=== PATIENT | female | born 1960 | race Two or more races ===

== ENCOUNTER 2023-10-08 21:00 | Inpatient (IN) | payer MEDICAID, OTHER ==
[~2023-10-08] VITALS: Ht 160 cm; Wt 67.5 kg
[2023-10-08 21:53] LABS: Basophils # (auto) 0.1 10 ^3/uL (0-0.2); Basophils % (auto) 2.5 % (0.0-2.0); Eosinophils # (auto) 0.2 10 ^3/uL (0-0.8); Eosinophils % (auto) 3.7 % (0.0-7.0); Hematocrit 39.4 % (36.0-46.0); Lymphocytes # (auto) 1.6 10 ^3/uL (0.4-5.4); Mean Corpuscular Hemoglobin 33.4 pg (28.0-32.0); Mean Corpuscular Hgb Conc. 35.5 g/dL (32.0-36.0); Mean Corpuscular Volume 94.2 fL (80.0-100.0); Monocytes # (auto) 0.5 10 ^3/uL (0-1.3); Monocytes % (auto) 9.3 % (0.0-12.0); Neutrophils # (auto) 2.8 10 ^3/uL (1.6-8.6); Neutrophils % (auto) 53.5 % (37.0-80.0); Platelet Count (auto) 267 10^3/uL (140-450); Red Blood Cells 4.18 10^6/uL (4.0-5.20); Red Cell Distribution Width 13.3 % (11.8-14.3); White Blood Cell 5.2 10^3/uL (4.4-10.8)
[2023-10-08 22:00] LABS: Alanine Aminotransferase 46 U/L (7-40); Albumin 4.4 g/dL (3.2-4.8); Alkaline Phosphatase 133 U/L (46-116); Anion Gap 10 (5-15); Aspartate Aminotransferase 104 U/L (13-40); Bilirubin, Total 0.4 mg/dL (0.2-1.0); Calcium 9.6 mg/dL (8.7-10.4); Carbon Dioxide 23 mmol/L (20-30); Chloride 97 mmol/L (98-107); Glucose 97 mg/dL (74-106); Potassium 3.4 mmol/L (3.5-5.1); Sodium 130 mmol/L (136-145); Total Protein 7.4 g/dL (5.7-8.2)
[2023-10-08 22:02] LABS: BUN/Creatinine Ratio 7.9 (10.0-20.0); Blood Urea Nitrogen < 5 mg/dL (9-23)
[2023-10-08 22:21] VITALS: PULSE 73; RESP 8; O2SAT 95
[2023-10-08] MEDS: ENOXAPARIN SOD 60 MG/0.6 ML SYRINGE SC ONE (23:27)
[2023-10-08] MEDS: ASPirin 325 MG TAB PO ONE (23:27)
[2023-10-09] MEDS: MORPHINE SULFATE 4 MG/ML SYR/VIAL IV ONE (01:02)
[2023-10-09] MEDS ORDERED: hydrALAZINE HCL 20 MG/ML VL IV PRN (01:45)
[2023-10-09] MEDS: ONDANSETRON HCL 4 MG/2 ML VIAL IV ONE (01:58)
[2023-10-09] MEDS: POTASSIUM CHL 20 Meq TABLET PO ONE ×2 (02:27→10:23)
[2023-10-09] MEDS: ATORVASTATIN 20 MG TAB PO ONE (02:27)
[2023-10-09 02:41] LABS: Basophils # (auto) 0 10 ^3/uL (0-0.2); Basophils % (auto) 0.7 % (0.0-2.0); Eosinophils # (auto) 0.2 10 ^3/uL (0-0.8); Eosinophils % (auto) 3.1 % (0.0-7.0); Hematocrit 39.6 % (36.0-46.0); Hemoglobin 13.5 g/dL (12.2-16.2); Lymphocytes # (auto) 1.5 10 ^3/uL (0.4-5.4); Mean Corpuscular Hemoglobin 32.3 pg (28.0-32.0); Mean Corpuscular Hgb Conc. 34.1 g/dL (32.0-36.0); Mean Corpuscular Volume 94.7 fL (80.0-100.0); Monocytes # (auto) 0.6 10 ^3/uL (0-1.3); Monocytes % (auto) 11.6 % (0.0-12.0); Neutrophils # (auto) 2.8 10 ^3/uL (1.6-8.6); Neutrophils % (auto) 54.6 % (37.0-80.0); Platelet Count (auto) 268 10^3/uL (140-450); Red Blood Cells 4.18 10^6/uL (4.0-5.20); Red Cell Distribution Width 13.1 % (11.8-14.3); White Blood Cell 5.1 10^3/uL (4.4-10.8)
[2023-10-09 02:50] LABS: Urine Bacteria None Seen /hpf (None Seen)
[2023-10-09 02:51] LABS: INR 1.07 (0.9-1.15); Partial Thromboplastin Time 32.7 SEC (24.5-34.5); Prothrombin Time 11.3 sec (9.3-11.8)
[2023-10-09 02:55] LABS: Triglycerides 84 mg/dL (< 150)
[2023-10-09 02:56] LABS: LDL Cholesterol 51 mg/dL (< 100)
[2023-10-09 02:57] LABS: Cholesterol 224 mg/dL (< 200); HDL Cholesterol 147 mg/dL (40-59)
[2023-10-09 03:11] LABS: Urine Blood Negative /uL (Negative); Urine Clarity Clear (Clear); Urine Color Colorless (Yellow); Urine Protein, UAD Negative (Negative); Urine Specific Gravity 1.004 (1.001-1.035); Urine Urobilinogen Normal (Negative); Urine WBC 2 /hpf (0 - 5); Urine pH 5.5 (5.0-9.0)
[2023-10-09] MEDS: HYDROcodone-ACET 5/325MG TAB PO ONE (03:26)
[2023-10-09 07:40] VITALS: PULSE 71; RESP 15; O2SAT 97
[2023-10-09] MEDS: NITROGLYCERIN 0.4 MG SL TAB SL PRN (08:10)
[2023-10-09] MEDS: MORPHINE SULFATE INJ 2 MG/ml SYRG IV PRN (08:11)
[2023-10-09] MEDS: ONDANSETRON HCL 4 MG/2 ML VIAL IV PRN (08:21)
[2023-10-09] MEDS: SODIUM CHLORIDE 0.9% 1,000 ML IV ONE (09:00)
[2023-10-09] MEDS: NOREPINEPHRINE 8 MG/250ML KIT 0 ML IV ONE (09:06)
[2023-10-09] MEDS ORDERED: METOCLOPRAMIDE HCL 5MG/ml INJ 2ml VIAL IV PRN (09:15)
[2023-10-09] MEDS: NOREPINEPHRINE 8 MG/250ML KIT 250 ML IV SCH (09:15)
[2023-10-09] MEDS: ASPirin 81 mg TAB PO SCH (10:23)
[2023-10-09] MEDS: HEPARIN DRIP/D5W 100UNITS/ML 250 ML IV SCH ×2 (10:25→18:25)
[2023-10-09 17:20] LABS: INR 1.07 (0.9-1.15); Partial Thromboplastin Time 32.8 SEC (24.5-34.5); Prothrombin Time 11.3 sec (9.3-11.8)
[2023-10-09] MEDS: HEPARIN SODIUM (PORCINE) 5000 UNITS/ML 1ML VIAL IV ONE (18:25)
[2023-10-09 19:30] VITALS: PULSE 77; RESP 15; O2SAT 97
[2023-10-09 20:00] VITALS: PULSE 94
[2023-10-09] MEDS: LORazepam 2MG/ML-1ML VIAL IV PRN (20:09)
[2023-10-09] MEDS: METOPROLOL TARTRATE 25 MG TAB PO SCH (21:33)
[2023-10-09] MEDS: ATORVASTATIN 20 MG TAB PO SCH (21:33)
[2023-10-09] MEDS ORDERED: ATORVASTATIN 20 MG TAB PO SCH (22:00)
[2023-10-10] VITALS (15 sets, daily range): BP systolic 99–141; BP diastolic 61–88; PULSE 64–94; RESP 11–19; TEMP 97.5–98.5; O2SAT 92–100
[2023-10-10] MEDS ORDERED: AMLO1TAB22 PO (01:13)
[2023-10-10] MEDS ORDERED: SERT-206 PO (01:13)
[2023-10-10] MEDS ORDERED: ROPI0.5T26 PO (01:13)
[2023-10-10] MEDS ORDERED: LISI20TA56 PO (01:13)
[2023-10-10] MEDS ORDERED: TRAZ-228 PO (01:13)
[2023-10-10] MEDS ORDERED: HYDR-4924 PO (01:13)
[2023-10-10] MEDS ORDERED: ROPI5TAB20 PO (01:13)
[2023-10-10 01:22] LABS: INR 1.09 (0.9-1.15); Prothrombin Time 11.5 sec (9.3-11.8)
[2023-10-10 01:26] LABS: Partial Thromboplastin Time 87.7 SEC (24.5-34.5)
[2023-10-10] MEDS ORDERED: HEPARIN DRIP/D5W 100UNITS/ML 250 ML IV SCH (01:45)
[2023-10-10] MEDS: HEPARIN DRIP/D5W 100UNITS/ML 250 ML IV SCH ×2 (01:47→08:44)
[2023-10-10] MEDS: IODIXANOL 320MG/ML 100ML BTL IV ONE (07:36)
[2023-10-10] MEDS: HEPARIN IN NS 1000Units/500mL 1,500 ML ONE ×2 (07:36→08:50)
[2023-10-10 07:48] LABS: Basophils # (auto) 0.1 10 ^3/uL (0-0.2); Basophils % (auto) 1.5 % (0.0-2.0); Eosinophils # (auto) 0.1 10 ^3/uL (0-0.8); Eosinophils % (auto) 3.3 % (0.0-7.0); Hematocrit 38.9 % (36.0-46.0); Hemoglobin 13.4 g/dL (12.2-16.2); Lymphocytes # (auto) 1.2 10 ^3/uL (0.4-5.4); Lymphocytes % (auto) 29.3 % (10.0-50.0); Mean Corpuscular Hemoglobin 33.1 pg (28.0-32.0); Mean Corpuscular Hgb Conc. 34.3 g/dL (32.0-36.0); Mean Corpuscular Volume 96.3 fL (80.0-100.0); Monocytes # (auto) 0.5 10 ^3/uL (0-1.3); Monocytes % (auto) 12.1 % (0.0-12.0); Neutrophils # (auto) 2.2 10 ^3/uL (1.6-8.6); Neutrophils % (auto) 53.8 % (37.0-80.0); Nucleated Red Blood Cells % 0.1 %; Platelet Count (auto) 224 10^3/uL (140-450); Red Blood Cells 4.04 10^6/uL (4.0-5.20); Red Cell Distribution Width 13.4 % (11.8-14.3)
[2023-10-10 07:55] LABS: Alanine Aminotransferase 55 U/L (7-40); Alkaline Phosphatase 178 U/L (46-116); Anion Gap 7 (5-15); Calcium 9.4 mg/dL (8.7-10.4); Carbon Dioxide 24 mmol/L (20-30); Chloride 104 mmol/L (98-107); Glucose 87 mg/dL (74-106); Potassium 3.5 mmol/L (3.5-5.1)
[2023-10-10 07:57] LABS: Albumin 3.9 g/dL (3.2-4.8); Aspartate Aminotransferase 133 U/L (13-40)
[2023-10-10 07:58] LABS: Total Protein 6.5 g/dL (5.7-8.2)
[2023-10-10 08:01] LABS: BUN/Creatinine Ratio 8.3 (10.0-20.0); Blood Urea Nitrogen < 5 mg/dL (9-23); Sodium 135 mmol/L (136-145)
[2023-10-10 08:15] LABS: INR 1.06 (0.9-1.15); Partial Thromboplastin Time 40.5 SEC (24.5-34.5); Prothrombin Time 11.2 sec (9.3-11.8)
[2023-10-10] MEDS: LIDOCAINE 2%HCL (LOCAL ANESTH.) INJ 20ML MDV ONE (08:50)
[2023-10-10] MEDS: fentaNYL CITRATE 100 MCG/2 ML VL ONE (08:59)
[2023-10-10] MEDS: MIDAZOLAM HCL 2MG/2ML 2ml VIAL (1mg/ml) ONE (09:00)
[2023-10-10] MEDS: IOHEXOL 350 MG/ML 100ML IJ ONE (09:00)
[2023-10-10] MEDS: HEPARIN SODIUM (PORCINE) 5000 UNITS/ML 1ML VIAL ONE (09:32)
[2023-10-10] MEDS: VERAPAMIL 2.5MG/ML INJ 2ML VIAL IV ONE (09:33)
[2023-10-10] MEDS: ANGIOMAX 250 MG VIAL IV ONE (09:33)
[2023-10-10] MEDS: SERTRALINE HCL 50 MG TAB PO ONE (12:27)
[2023-10-10] MEDS: COLCHICINE 0.6 MG CAP PO ONE (12:27)
[2023-10-10] MEDS: ASPirin 81 mg TAB PO SCH (12:27)
[2023-10-10] MEDS: traZODone HCL 50 MG TAB PO SCH (22:15)
[2023-10-10] MEDS: COLCHICINE 0.6 MG CAP PO SCH (22:15)
[2023-10-10] MEDS: ROPINIROLE 0.5 MG PO SCH (22:19)
[2023-10-11 01:00] VITALS: BP 124/83; PULSE 68; RESP 16; TEMP 98; O2SAT 99
[2023-10-11 05:00] VITALS: BP 110/64; PULSE 72; RESP 18; TEMP 98; O2SAT 97
[2023-10-11 08:00] VITALS: PULSE 66; PULSE 69; RESP 17; O2SAT 99
[2023-10-11 08:49] LABS: Hepatitis B Surface Antigen Negative (Negative)
[2023-10-11 09:00] VITALS: BP 130/76; PULSE 66; RESP 17; TEMP 98.5; O2SAT 99
[2023-10-11 09:10] LABS: Hepatitis A Ab IgM Negative; Hepatitis B Core IgM Negative
[2023-10-11 09:11] LABS: Hepatitis C Antibody Negative (Negative)
[2023-10-11] MEDS: SERTRALINE HCL 50 MG TAB PO SCH (09:31)
[2023-10-11] MEDS ORDERED: COLC1CAP PO (10:52)
[2023-10-11] MEDS ORDERED: ASPI-628 PO (10:52)
[2023-10-11] MEDS ORDERED: METO25TA5 PO (10:52)
[2023-10-11] MEDS ORDERED: ATOR-507 PO (10:52)
[2023-10-11] MEDS ORDERED: LORA-1121 PO (10:53)
[2023-10-11 12:49] VITALS: BP 116/77; PULSE 64; RESP 17; TEMP 98.1; O2SAT 97
[2023-10-11 13:01] VITALS: BP 130/76; PULSE 66; TEMP 36.7
== END 2023-10-11 16:18 | disposition home or self-care (01) | DRG 190 ==
LOC: ER 21:00 → TELE 10-09 01:47 → TELE-WESTW 10-09 23:47
PROVIDERS: ADMIT Nurse Practitioner; ATTEND Family Medicine
PROC: B211YZZ Fluoroscopy of Multiple Coronary Arteries using Other Contrast (ICD-10-PCS; principal; 2023-10-10)
PROC: 4A023N7 Measurement of Cardiac Sampling and Pressure, Left Heart, Percutaneous Approach (ICD-10-PCS; 2023-10-10)
PROC: B215YZZ Fluoroscopy of Left Heart using Other Contrast (ICD-10-PCS; 2023-10-10)
DX: I21.4 Non-ST elevation (NSTEMI) myocardial infarction (principal); E87.1 Hypo-osmolality and hyponatremia; I31.9 Disease of pericardium, unspecified; E78.00 Pure hypercholesterolemia, unspecified; I10 Essential (primary) hypertension; R74.01 Elevation of levels of liver transaminase levels; F32.A Depression, unspecified; F10.10 Alcohol abuse, uncomplicated; K21.9 Gastro-esophageal reflux disease without esophagitis; Z88.2 Allergy status to sulfonamides; Z98.84 Bariatric surgery status; Z79.899 Other long term (current) drug therapy; Z90.49 Acquired absence of other specified parts of digestive tract; Z71.41 Alcohol abuse counseling and surveillance of alcoholic
CPT/HCPCS: 36415; 71045; 80053; 80061; 80074; 81001; 82962; 83880; 84484; 85025; 85610; 85730; 86850; 86900; 86901; 93005; 93306; 93458; 96372; 96374; 99152; G0378; J2250; J2405; Q9967

== ENCOUNTER 2024-07-30 10:20 | Emergency (ER) | payer MEDICAID ==
[~2024-07-30] VITALS: Ht 160 cm; Wt 59.0 kg
[~2024-07-30 10:20] MED LIST: AMLO1TAB22 PO; ASPI-628 PO; ATOR-507 PO; COLC1CAP PO; HYDR-4924 PO; LISI20TA56 PO; LORA-1121 PO; METO25TA5 PO; ROPI0.5T26 PO; ROPI5TAB20 PO; SERT-206 PO; TRAZ-228 PO
--- NOTE | 2024-07-30 10:36 | ED.PDOC ---
Psychiatric HPI Comments 63 y/o F, with PMHx of alcohol abuse, HTN, and SC presents to the ED for CC of withdrawals. Patient states, that she drinks ETOH xeveryday and endorses, her last drink to be 2400 last night (07/29/24). Patient endorses, experiencing symptoms of tremors and chest discomfort. Patient denies nausea, vomiting, auditory hallucinations, or visual hallucinations. No other symptoms or modifying factors present at this time. Time Seen by MD: 10:32 Reviewed Notes: Nurses Notes, Medications, Allergies Information Source: Patient Mode of Arrival: Ambulatory Severity: Able to Care for Self Severity of Pain: None Severity of Mental Status: Moderate Severity of Symptoms: Moderate Timing: Hours Duration: Since onset Prehospital treatment: None Presents with: Alcohol Intoxication Ingestion: ETOH Circumstance: Withdrawal Symptoms Current substance abuse: ETOH Stressors: None History of: Alcoholism Quality: None Location: None Location of pain or injury: None Associated signs and symptoms: None Past Medical History PAST MEDICAL HISTORY: HTN Surgical History: Appendectomy, Cholecystectomy Surgical History (Other): GASTRIC BYPASS, L-ARM, R-HIP 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 SERVICES OFFICER History: Denies all ANIMAL SERVICES OFFICER Hx Family History Family History: Unknown Social History Smoker: Non-Smoker Alcohol: Heavy Drugs: Marijuana Lives In: Home Constitutional: reports: weakness; denies: chills, diaphoresis, fatigue, fever, malaise, sweats, others EENTM: denies: blurred vision, double vision, ear bleeding, ear discharge, ear drainage, ear pain, ear ringing, eye pain, eye redness, hearing loss, mouth pain, mouth swelling, nasal discharge, nose bleeding, nose congestion, nose pain, photophobia, tearing, throat pain, throat swelling, voice changes, others Respiratory: denies: cough, hemoptysis, orthopnea, SOB at rest, shortness of breath, SOB with excertion, stridor, wheezing, others Cardiovascular: reports: chest pain; denies: dizzy spells, diaphoresis, Dyspnea on exertion, edema, irregular heart beat, left arm pain, lightheadedness, palpitations, PND, syncope, others Gastrointestinal: denies: abdomen distended, abdominal pain, blood streaked bowels, constipated, diarrhea, dysphagia, difficulty swallowing, hematemesis, melena, nausea, poor appetite, poor fluid intake, rectal bleeding, rectal pain, vomiting, others Genitourinary: denies: abnormal vagina bleeding, burning, dyspareunia, dysuria, flank pain, frequency, hematuria, incontinence, pain, , vagina discharge, urgency, others Neurological: reports: tremors; denies: dizziness, fainting, headache, left sided numbness, left sided weakness, numbness, paresthesia, pre-existing defi cit, right sided numbness, right sided weakness, seizure, speech problems, tingling, weakness, others Musculoskeletal: denies: back pain, gout, joint pain, joint swelling, muscle pain, muscle stiffness, neck pain, others Integumetry: denies: bruises, change in color, change in hair/nails, dryness, laceration, lesions, lumps, rash, wounds, others Allergic/Immunocompromised: denies: Difficulty Healing, Frequent Infections, Hives, Itching, others Hematologic/Lymphatic: denies: anemia, blood clots, easy bleeding, easy bruising, swollen glands, others Endocrine: denies: excessive hunger, excessive sweating, excessive thirst, excessive urination, flushing, intolerance to cold, intolerance to heat, unexplained weight gain, unexplained weight loss, others Psychiatric: denies: anxiety, bipolar disorder, depression, hopeless, panic disorder, schizophrenia, sleepless, suicidal, others All Other Systems: Reviewed and Negative Physical Exam General Appearance: Moderate Distress, Other (Tremors) HEENT: Normal ENT Inspection, Pharynx Normal, TMs Normal Neck: Full Range of Motion, Non-Tender, Normal, Normal Inspection Respiratory: Chest Non-Tender, Lungs Clear, No Accessory Muscle Use, No Respiratory Distress, Normal Breath Sounds Cardiovascular: No Edema, No JVD, No Murmur, No Gallop, Normal Peripheral Pulses, Regular Rate/Rhythm Breast Exam: Deferred Gastrointestinal: No Organomegaly, Non Tender, No Pulsatile Mass, Normal Bowel Sounds, Soft Genitalia: Deferred Pelvic: Deferred Rectal: Deferred Extremities: No calf tenderness, Normal capillary refill, Normal inspection, Normal range of motion, Non-tender, No pedal edema Musculoskeletal : Apperance: Normal Neurologic: Alert, licensed psychiatric technician II-XII nml as Tested, Motor Weakness, Normal Affect, Normal Mood, No Sensory Deficits Cerebellar Function: Tremor Reflexes: Normal Skin: Dry, Normal Color, Warm Lymphatic: No Adenopathy EKG EKG : Pulse Rate (adult): 85 [place]: Normal Cardiac Rhythm: NSR Block: None Hypertrophy: None ST: Normal Was a procedure done? Was a procedure done?: No Psych Differential Dx Intoxication Differential Dx: Alcohol Withdraw Syndrome X-Ray, Labs, Meds, VS Vital Signs Date Time Temp Pulse Resp B/P (MAP) Pulse Ox O2 Delivery O2 Flow Rate FiO2 07/30/24 10:57 85 07/30/24 10:53 85 07/30/24 10:49 98.0 107 20 122/66 (84) 98 98.0 Lab Test 07/30/24 10:40 Range/Units White Blood Count 4.8 4.4-10.8 10^3/uL Red Blood Count 4.16 4.0-5.20 10^6/uL Hemoglobin 12.7 12.2-16.2 g/dL Hematocrit 37.4 36.0-46.0 % Mean Corpuscular Volume 89.8 80.0-100.0 fL Mean Corpuscular Hemoglobin 30.6 28.0-32.0 pg Mean Corpuscular Hemoglobin Concent 34.1 32.0-36.0 g/dL Red Cell Distribution Width 14.0 11.8-14.3 % Platelet Count 261 140-450 10^3/uL Mean Platelet Volume 6.5 L 6.9-10.8 fL Neutrophils (%) (Auto) 69.5 37.0-80.0 % Lymphocytes (%) (Auto) 17.6 10.0-50.0 % Monocytes (%) (Auto) 9.4 0.0-12.0 % Eosinophils (%) (Auto) 2.4 0.0-7.0 % Basophils (%) (Auto) 1.1 0.0-2.0 % Neutrophils # (Auto) 3.3 1.6-8.6 10 ^3/uL Lymphocytes # (Auto) 0.8 0.4-5.4 10 ^3/uL Monocytes # (Auto) 0.5 0-1.3 10 ^3/uL Eosinophils # (Auto) 0.1 0-0.8 10 ^3/uL Basophils # (Auto) 0.1 0-0.2 10 ^3/uL Nucleated Red Blood Cells 0.0 % Sodium Level 132 L 136-145 mmol/L Potassium Level 3.9 3.5-5.1 mmol/L Chloride Level 97 L 98-107 mmol/L Carbon Dioxide Level 25 20-31 mmol/L Anion Gap 10 5-15 Blood Urea Nitrogen < 5 L 9-23 mg/dL Creatinine 0.77 0.550-1.02 mg/dL Glomerular Filtration Rate Calc 87 >90 mL/min BUN/Creatinine Ratio 6.5 L 10.0-20.0 Serum Glucose 112 H 74-106 mg/dL Calcium Level 10.2 8.7-10.4 mg/dL Troponin I High Sensitivity < 3 L </=34 ng/L Plasma/Serum Blood Alcohol < 3.0 <10 mg/dL IV Hep-Lock was established The patient was given a 1 L bolus of normal saline The patient was given Ativan 1 mg IV push At this time, the patient will be admitted to the hospitalist The patient's diagnosis is alcohol withdrawal as well as acute chest pain. The patient's 1st troponin level came back as negative The CBC and chemistry panel is within normal limits The patient is being given aspirin 162 mg by mouth The patient is still having some persistent chest pain that we are not sure if this chest pain is secondary to the alcohol withdrawal or something cardiac We will be admitting the patient for further observation and treatment Images Reviewed?: Images reviewed and evaluated by me Time of 1ST Reevaluation: 11:02 Reevaluation 1ST: Unchanged Patient Education/Counseling: Diagnosis, Treatment, Prognosis Family Education/Counseling: No Family Present Departure 1 Departure Time of Disposition: 11:44 Impression: Primary Impression: Acute chest pain Additional Impression: Alcohol withdrawal syndrome Qualified Codes: F10.930 - Alcohol use, unspecified with withdrawal, uncomplicated Disposition: 09 ADMITTED INPATIENT Admit to: Tele Condition: Fair Critical Care Note Critical Care Time?: Yes (45 min-critical care time only) Stability Stability form required: Yes Unstable for transfer: Telemetry monitoring (Telemetry monitoring required), ED Physician Assesment (Clinical assesment) Heart Score Heart Score: Heart Score Response (Comments) Value History Moderate Suspicious 1 EKG Normal 0 Age 45-64 1 Risk Factors 1 or 2 risk factors 1 Troponin Normal limit 0 Total 3 I personally scribed for ALONSO CASTELLANO MD ([email or web address]) on 07/30/24 at 10:36. Electronically submitted by Kaylynn Rowley ([email or web address]). I personally scribed for ALONSO CASTELLANO MD ([email or web address]) on 07/30/24 at 10:57. Electronically submitted by Kaylynn Rowley ([email or web address]). ALONSO CASTELLANO MD Jul 30, 2024 10:36
[2024-07-30 10:56] LABS: Basophils # (auto) 0.1 10 ^3/uL (0-0.2); Basophils % (auto) 1.1 % (0.0-2.0); Eosinophils # (auto) 0.1 10 ^3/uL (0-0.8); Eosinophils % (auto) 2.4 % (0.0-7.0); Hematocrit 37.4 % (36.0-46.0); Hemoglobin 12.7 g/dL (12.2-16.2); Lymphocytes # (auto) 0.8 10 ^3/uL (0.4-5.4); Lymphocytes % (auto) 17.6 % (10.0-50.0); Mean Corpuscular Hemoglobin 30.6 pg (28.0-32.0); Mean Corpuscular Hgb Conc. 34.1 g/dL (32.0-36.0); Mean Corpuscular Volume 89.8 fL (80.0-100.0); Monocytes # (auto) 0.5 10 ^3/uL (0-1.3); Monocytes % (auto) 9.4 % (0.0-12.0); Neutrophils # (auto) 3.3 10 ^3/uL (1.6-8.6); Neutrophils % (auto) 69.5 % (37.0-80.0); Platelet Count (auto) 261 10^3/uL (140-450); Red Blood Cells 4.16 10^6/uL (4.0-5.20); White Blood Cell 4.8 10^3/uL (4.4-10.8)
[2024-07-30 11:01] LABS: Potassium 3.9 mmol/L (3.5-5.1)
[2024-07-30 11:02] LABS: Anion Gap 10 (5-15); Calcium 10.2 mg/dL (8.7-10.4); Carbon Dioxide 25 mmol/L (20-31)
[2024-07-30 11:05] LABS: Chloride 97 mmol/L (98-107); Sodium 132 mmol/L (136-145)
[2024-07-30 11:07] LABS: BUN/Creatinine Ratio 6.5 (10.0-20.0); Blood Urea Nitrogen < 5 mg/dL (9-23); Glucose 112 mg/dL (74-106)
[2024-07-30 11:08] LABS: Blood Alcohol < 3.0 mg/dL (<10)
[2024-07-30] MEDS: SODIUM CHLORIDE 0.9% 1,000 ML IV ONE (12:16)
[2024-07-30] MEDS: LORazepam 2MG/ML-1ML VIAL IV ONE (12:18)
--- NOTE | 2024-07-30 12:21 | DVH ---
CHEST RADIOGRAPH Indication: CP Technique: Frontal and lateral view of the chest was obtained Comparison: None FINDINGS: Lines and Tubes: None Lungs: Clear Pleura: No effusion. No pneumothorax. Cardiomediastinal contours: Unremarkable Bones: Unremarkable IMPRESSION: No evidence of acute disease.
[2024-07-30] MEDS: ASPirin 81 mg TAB PO ONE (13:22)
[2024-07-30] MEDS: ONDANSETRON HCL 4 MG/2 ML VIAL IV ONE (16:09)
[2024-07-30] MEDS: MORPHINE SULFATE 4 MG/ML SYR/VIAL IV ONE (16:09)
[2024-07-30 16:36] VITALS: BP 135/80; PULSE 74; RESP 14; TEMP 98.6; O2SAT 97
--- NOTE | 2024-07-31 14:17 | ECG ---
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
== END 2024-07-30 17:00 | disposition short-term general hospital (02) ==
LOC: ER 10:20
DX: R07.89 Other chest pain (principal); F10.139 Alcohol abuse with withdrawal, unspecified; I10 Essential (primary) hypertension; F12.90 Cannabis use, unspecified, uncomplicated; Z98.84 Bariatric surgery status; Z90.49 Acquired absence of other specified parts of digestive tract; Y90.0 Blood alcohol level of less than 20 mg/100 ml
CPT/HCPCS: 36415; 71046; 80048; 80320; 84484; 85025; 93005; 96361; 96374; 96375; 99285; J2060; J2270; J2405; J7030